=== PATIENT | male | born 1950 | race Caucasian/White ===

== ENCOUNTER → 2018-09-16 | Outpatient (CLI) | payer OTHER ==
[~2018-09-16] MED LIST: ARMOUR THYROID60 M1; AUGMENTIN 875875 MG PO; CIPROFLOXACIN500 M3; COLACE100 MG PO; DOC-Q-LACE; FAMOTIDINE PO; FLAGYL500 MG; HYDROCODON-ACE1 EAC1; TAMSULOSIN HCL0.4 MG; VICODIN ES TAB1 EACH PO
== END ==
LOC: M.CT 13:13
DX: Z13.6 Encounter for screening for cardiovascular disorders (principal)